=== PATIENT | female | born 1975 ===

== ENCOUNTER 2016-11-15 09:45 | Emergency (ER) | payer OTHER ==
[2016-11-15 09:45] VITALS: BMI 21.9
[2016-11-15 10:01] VITALS: BP 107/77; PULSE 74; RESP 18; TEMP 98; O2SAT 99
[2016-11-15] MEDS ORDERED: cefTRIAXone (Rocephin) 250 mg Inj IM ONE (10:41)
--- NOTE | 2016-11-15 10:44 | ED PDOC ---
HPI: Female Pain Time Seen by Provider: 11/15/16 10:42 Chief Complaint (Nursing): Female Genitourinary Chief Complaint (Provider): rash History Per: Patient (41 y/o female here with rash noted externally this week painful. Notes dysuria/hematuria this week. States she has had intermittent lower abdominal pain. Has been seen 3 weeks prior for similar symptoms and given rx without relief. NO fevers or chills.) Past Medical History Reviewed: Historical Data, Nursing Documentation, Vital Signs Vital Signs: Last Vital Signs Temp 98 F 11/15/16 09:59 Pulse 74 11/15/16 09:59 Resp 18 11/15/16 09:59 BP 107/77 11/15/16 09:59 Pulse Ox 99 11/15/16 09:59 - Medical History PMH: Anemia, Arthritis - Family History Family History: States: Unknown Family Hx - Home Medications Home Medications: Ambulatory Orders Medication Instructions Recorded Multivit/Folic Acid/I 1 tab PO DAILY #30 tab 04/12/16 [ Plus] Naproxen [Naprosyn] 500 mg PO Q12H #20 tab 05/31/16 Ciprofloxacin HCl [Cipro] 1 tab PO BID #6 tablet 11/15/16 valACYclovir [Valtrex] 1 gm PO BID #20 tab 11/15/16 - Allergies Allergies/Adverse Reactions: Allergies Allergy/AdvReac Type Severity Reaction Status Date / Time No Known Allergies Allergy Verified 04/21/16 10:09 Review of Systems ROS Statement: Except As Marked, All Systems Reviewed And Found Negative Physical Exam - Reviewed Nursing Documentation Reviewed: Yes Vital Signs Reviewed: Yes - Physical Exam Appears: Positive for: Well, Non-toxic, No Acute Distress Head Exam: Positive for: ATRAUMATIC, NORMAL INSPECTION, NORMOCEPHALIC Skin: Positive for: Normal Color, Warm, DRY Eye Exam: Positive for: EOMI, Normal appearance, PERRL ENT: Positive for: Normal ENT Inspection Neck: Positive for: Normal, Painless ROM Cardiovascular/Chest: Positive for: Regular Rate, Rhythm Respiratory: Positive for: CNT, Normal Breath Sounds Gastrointestinal/Abdominal: Positive for: Normal Exam, Bowel Sounds, Soft Pelvic Exam: Positive for: External Exam Normal (two ulcerative lesions noted external labia.), Discharge (yellowish discharge noted from cervix. No erythema. nontender cervix/nontender adnexa) Back: Positive for: Normal Inspection Extremity: Positive for: Normal ROM Neurologic/Psych: Positive for: Alert, Oriented - Laboratory Results Urine POC: Negative Urine dip results: Positive for: Leukocyte Esterase. Negative for: Blood, Nitrate, Ketones, Glucose, Bilirubin, Protein - ECG O2 Sat by Pulse Oximetry: 99 - Progress ED Course And Treament: Rocephin 250 mg IM x 1 dose Zithromax 1 gm po x 1dose GC sent UA/Ucx sent RPR sent. Disposition - Clinical Impression Clinical Impression: Genital labial ulcer - Disposition Disposition: Routine/Home Disposition Time: 10:46 Condition: FAIR Prescriptions: valACYclovir [Valtrex] 1 gm PO BID #20 tab Instructions: Genital Herpes Simplex (ED) Forms: [facility] (Divehi)
[2016-11-15 11:02] LABS: URINE BACTERIA FEW (<OCC); URINE BILIRUBIN NEGATIVE (NEGATIVE); URINE BLOOD NEGATIVE (NEGATIVE); URINE COLOR YELLOW (YELLOW); URINE GLUCOSE (UA) NEG (Normal); URINE KETONE NEGATIVE (NEGATIVE); URINE LEUKOCYTE ESTERASE LARGE Leu/uL (Negative); URINE PROTEIN NEGATIVE (NEGATIVE); URINE UROBILINOGEN 0.2-1.0 mg/dL (0.2-1.0); WBC URINE 77 /hpf (0-5)
[2016-11-15] MEDS ORDERED: cefTRIAXone (Rocephin) 250 mg Inj ONE (11:13)
[2016-11-15] MEDS ORDERED: Sterile Water 10 ML IV ONE (11:13)
== END 2016-11-15 11:24 | disposition home or self-care (01) ==
LOC: H.ER 09:45
DX: A60.09 Herpesviral infection of other urogenital tract (principal)

== ENCOUNTER 2017-01-10 10:36 | Emergency (ER) | payer OTHER, SELFPAY ==
[2017-01-10 10:55] VITALS: BP 113/74; PULSE 72; TEMP 98.3; BMI 20.2
[2017-01-10 11:25] VITALS: RESP 18; O2SAT 100
--- NOTE | 2017-01-10 14:14 | ED PDOC ---
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 denies: Nausea, Vomiting Alleviating Factors: None Additional History Per: Prior Records Additional Complaint(s): 41yo female c/o genital ulcers weeping with yellow fluid now ongoing 4-5 days. Denies back pain, fever, pelvic pain or abdominal pain. Prior charts reviewed, here several weeks ago, per chart pelvic exam demonstrated ulcerations, treated w rocephin IM and azithro in ED, PO cipro (she was unable to afford the cream Rx ) but symptoms have worsened. She was due to see [facility] today but came to ED instead. She also c/o ongoing atraumatic hand pain to both hands L>R. 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 Pain is sharp, tingling, mostly digits 1-3. Denies acute trauma or injury. Denies weakness. Worsens after working w hands. No relieving factors. Past Medical History Reviewed: Historical Data, Nursing Documentation, Vital Signs Vital Signs: Last Vital Signs Temp 98.3 F 01/10/17 11:19 Pulse 72 01/10/17 11:19 Resp 18 01/10/17 11:19 BP 113/74 01/10/17 11:19 Pulse Ox 100 01/10/17 11:19 - Medical History PMH: Anemia, Arthritis - Surgical History Surgical History: No Surg Hx - Family History Family History: States: Unknown Family Hx - Living Arrangements Living Arrangements: With Family - Social History Current smoker - smoking cessation education provided: No - Home Medications Home Medications: Ambulatory Orders Medication Instructions Recorded Multivit/Folic Acid/I 1 tab PO DAILY #30 tab 04/12/16 [ Plus] Naproxen [Naprosyn] 500 mg PO Q12H #20 tab 05/31/16 Ciprofloxacin HCl [Cipro] 1 tab PO BID #6 tablet 11/15/16 valACYclovir [Valtrex] 1 gm PO BID #20 tab 11/15/16 Ciprofloxacin [Cipro] 500 mg PO BID #14 tab 01/10/17 Doxycycline Monohydrate 100 mg PO BID #20 capsule 01/10/17 Valacyclovir HCl [Valtrex] 1 gm PO BID #20 tablet 01/10/17 - Allergies Allergies/Adverse Reactions: Allergies Allergy/AdvReac Type Severity Reaction Status Date / Time No Known Allergies Allergy Verified 04/21/16 10:09 Review of Systems ROS Statement: Except As Marked, All Systems Reviewed And Found Negative Constitutional: Negative for: Fever, Chills Respiratory: Negative for: Cough, Shortness of Breath Gastrointestinal: Negative for: Nausea, Vomiting Genitourinary Female: Positive for: Vaginal Discharge, Rash. Negative for: Dysuria, Frequency, Incontinence Musculoskeletal: Positive for: Hand Pain Skin: Positive for: Rash (genital) Neurological: Negative for: Weakness, Numbness Psych: Negative for: Anxiety Physical Exam - Reviewed Nursing Documentation Reviewed: Yes Vital Signs Reviewed: Yes - Physical Exam Appears: Positive for: Well, Non-toxic, No Acute Distress Head Exam: Positive for: ATRAUMATIC, NORMAL INSPECTION, NORMOCEPHALIC Skin: Positive for: Normal Color, Warm, DRY Eye Exam: Positive for: EOMI, Normal appearance, PERRL ENT: Positive for: Normal ENT Inspection Neck: Positive for: Normal, Painless ROM Cardiovascular/Chest: Positive for: Regular Rate, Rhythm Respiratory: Positive for: CNT, Normal Breath Sounds Gastrointestinal/Abdominal: Positive for: Bowel Sounds, Soft. Negative for: Tenderness, Guarding Pelvic Exam: Positive for: Cervicitis (trace]), Discharge, Tender W/Cervical Motion (minimal), Ulcers (inferior perineum and labia majora, +pustulence and tenderness, herpetic vs chanroid), Other (pelvic performed w mervin marie RN). Negative for: Blood Back: Positive for: Normal Inspection Extremity: Positive for: Normal ROM, Other (+ tinnel test L wrist; no edema, normal cap refill b/l hands). Negative for: Deformity Neurologic/Psych: Positive for: Alert, Oriented - Laboratory Results Result Diagrams: 01/10/17 14:15 01/10/17 14:15 - ECG O2 Sat by Pulse Oximetry: 100 Medical Decision Making Medical Decision Making: pelvic exam w progressive lesions to genital area. Genital cultures obtained Empiric retreatment w azithro/rocephin. Check HSV titres. Start doxy, cipro and acyclovir Needs [facility] followup. Sexual hx: states monogamous w , no recent STIs. Splint placed for possible L wrist carpal tunnel syndrome. Followup hand surgery/ clinic. Disposition - Clinical Impression Clinical Impression: Genital labial ulcer, Vaginal discharge, Hand pain - Patient ED Disposition Is Patient to be Admitted: No Counseled Patient/Family Regarding: Studies Performed, Diagnosis, Need For Followup, Rx Given - Disposition Referrals: [facility] [Outside] Disposition: Routine/Home Disposition Time: 13:45 Condition: STABLE Additional Instructions: [facility] ([facility] FOR FURTHER TESTING AND TREATMENT. AVOID SEX UNTIL ALL RESULTS ARE BACK. YOU WILL BE CALLED FOR POSITIVE RESULTS ONLY. TAKE MEDICATIONS DIRECTED. HAVE ALL PARTNERS TESTED. Prescriptions: Ciprofloxacin [Cipro] 500 mg PO BID #14 tab Doxycycline Monohydrate 100 mg PO BID #20 capsule Valacyclovir HCl [Valtrex] 1 gm PO BID #20 tablet Instructions: Sexually Transmitted Diseases (ED), Urinary Tract Infection in Women (ED) Forms: [employer] (Romanian) Print Language: WELSH
[2017-01-10 14:33] LABS: BASO % 0.3 % (0.0-2.0); EOS # 0.1 K/uL (0.0-0.7); EOS % 1.2 % (0.0-4.0); HEMATOCRIT 33.9 % (34.0-47.0); LYMPH # 1.7 K/uL (1.0-4.3); LYMPH % 34.8 % (20.0-40.0); MEAN CELL VOLUME 90.9 fl (81.0-99.0); MEAN CORPUSCULAR HEMOGLOBIN 30.5 pg (27.0-31.0); MEAN CORPUSCULAR HGB CONC 33.5 g/dL (33.0-37.0); MEAN PLATELET VOLUME 8.2 fl (7.2-11.7); MONO # 0.2 K/uL (0.0-0.8); MONO % 4.8 % (0.0-10.0); NEUT # 2.8 K/uL (1.8-7.0); NEUT % 58.9 % (50.0-75.0); NRBC % 0.1 % (0.0-0.0); RED CELL DISTRIBUTION WIDTH 13.2 % (11.5-14.5); WHITE BLOOD COUNT 4.7 K/uL (4.8-10.8)
[2017-01-10] MEDS ORDERED: cefTRIAXone (Rocephin) 1 gm Inj ONE (14:34)
[2017-01-10 14:44] LABS: BLOOD UREA NITROGEN 21 mg/dl (7-17); CALCIUM 9.4 mg/dL (8.4-10.2); CARBON DIOXIDE 22 mmol/L (22-30); CHLORIDE 108 mmol/L (98-107); GFR AFRICAN-AMERICAN > 60; GLUCOSE,RANDOM 80 mg/dL (65-105); POTASSIUM 4.1 MMOL/L (3.6-5.0); SODIUM 142 mmol/l (132-148)
== END 2017-01-10 17:21 | disposition home or self-care (01) ==
LOC: H.ER 10:36
DX: N76.6 Ulceration of vulva (principal); M25.532 Pain in left wrist
CPT/HCPCS: 29125; 80048; 85025; 86695; 86696; 87070; 87491; 87591; 96360; 96361; 99283; J0696